=== PATIENT | male | born 1985 | race Caucasian/White ===

== ENCOUNTER 2016-09-17 00:58 | Emergency (ER) | payer OTHER ==
[2016-09-17 01:07] VITALS: BP 135/82
--- NOTE | 2016-09-17 01:29 | ER Document Report ---
ED General - General Chief Complaint: Foot Pain Stated Complaint: FOOT PAIN Time Seen by Provider: 09/17/16 01:17 Notes: Patient is a 31-year-old male presents with complaint of pain in his right foot and ankle. 3 weeks ago he rolled his ankle at work. Since then he has had intermittent swelling. He says recently he will get swelling into his foot and ankle and then it will become discolored. He has recurrent numbness with this. Tonight the swelling lasted for prolonged period time his foot was discolored and therefore came to the ER. Currently there is no discoloration. Patient says that he took off the splint and kept his foot elevated afterwards swelling and discoloration has improved. He still complains that he can see some discoloration and swelling however I do not really see any on exam currently. He did see urgent care. He did have x-rays which were negative. He has seen his primary care doctor who is referred him. He is awaiting workman's comp to approve the MRI. TRAVEL OUTSIDE OF THE [place] IN LAST 30 DAYS: No - Related Data Allergies/Adverse Reactions: No Known Allergies Allergy (Verified 04/24/15 13:40) Past Medical History - Social History Smoking Status: Unknown if Ever Smoked Frequency of alcohol use: None Drug Abuse: None Family History: Arthritis, CAD, CVA, DM, Hyperlipidemia, Hypertension, Malignancy Patient has suicidal ideation: No Patient has homicidal ideation: No Renal/ Medical History: Denies: Hx Peritoneal Dialysis Past Surgical History: Reports: Hx Appendectomy - Immunizations Hx Diphtheria, Pertussis, Tetanus Vaccination: Yes Review of Systems - Review of Systems Notes: My Normal Review Basic REVIEW OF SYSTEMS: CONSTITUTIONAL : Denies fever, chills, or sweats. Denies recent illness. MUSCULOSKELETAL: Right foot swelling and discoloration. SKIN: Denies rash or skin lesions. NEUROLOGICAL: numbness in right foot. ALL OTHER SYSTEMS REVIEWED AND NEGATIVE. Physical Exam - Vital signs Vitals: Temp Pulse Resp BP Pulse Ox 97.6 F 98 16 135/82 H 96 09/17/16 01:03 09/17/16 01:03 09/17/16 01:03 09/17/16 01:03 09/17/16 01:03 - Notes Notes: General Appearance: Well nourished, alert, cooperative, no acute distress, no obvious discomfort. Vitals: reviewed, See vital signs table. Extremities: strength 5/5 in all extremities, good pulses in all extremities, patient has slight residual bruising just proximal to the ankle itself. This is consistent with a high ankle sprain. The foot itself is normal color on my examination. His pedal pulses are fully intact and bounding. He has great capillary refill. He does say he has numbness to the foot but he is still able to feel me touch his foot; however, he says it is diminished. Cannot appreciate any swelling into the calf., no edema. Skin: warm, dry, appropriate color, no rash Neuro: speech clear, oriented x 3, normal affect, responds appropriately to questions. Course - Vital Signs Vital signs: Temp Pulse Resp BP Pulse Ox 97.6 F 98 16 135/82 H 96 09/17/16 01:03 09/17/16 01:03 09/17/16 01:03 09/17/16 01:03 09/17/16 01:03 - Transfer of Care Notes: 09/17/16 02:25 I suspect the patient is having increased swelling when he is at his foot down. This most likely would explain why he gets some discoloration. He feels he has some discoloration in his foot but I honestly cannot appreciate any discoloration on my exam. His pulses are great. His great capillary refill. I informed him that if he is developing any increased swelling or discoloration that he should take his splint off and elevate his foot until the symptoms go away. Due to the fact that he still not able to bear weight on his foot 3 weeks after the injury I do think it is very important he follows up with an orthopedist and have the MRI performed. I did refer him to our orthopedic surgeon, Dr. Gerardo. Patient encouraged to return to ER if he has any discoloration increased swelling that does not resolve with elevating his foot. Dictation of this chart was performed using voice recognition software; therefore, there may be some unintended grammatical errors. 09/17/16 02:28 Discharge - Discharge Clinical Impression: High ankle sprain Qualifiers: Encounter type: initial encounter Laterality: right Qualified Code(s): S93.431A - Sprain of tibiofibular ligament of right ankle, initial encounter Condition: Good Disposition: HOME, SELF-CARE Additional Instructions: PLeae keep your foot elevated as much as possible. Please remove the splint and immediately elevate your foot if it starts to become more swollen and discolored. Please call the orthopedist, Dr. Gerardo, for close follow up appointment. Referrals: KHOA TAMAYO MD [ACTIVE STAFF] - Follow up in 3-5 days
== END 2016-09-17 01:32 | disposition home or self-care (01) ==
LOC: ER 00:58
DX: S93.431A Sprain of tibiofibular ligament of right ankle, initial encounter (principal); M79.671 Pain in right foot; M25.571 Pain in right ankle and joints of right foot; M79.89 Other specified soft tissue disorders; X58.XXXA Exposure to other specified factors, initial encounter
CPT/HCPCS: 99283

== ENCOUNTER 2017-04-08 23:25 | Emergency (ER) | payer SELFPAY ==
[2017-04-09] MEDS ORDERED: GUAIFENESIN/D-METHORPHAN (200-20 MG) SYRUP 10 ML PO ONE (02:17)
--- NOTE | 2017-04-09 02:18 | ER Document Report ---
ED Flu Like - General Chief Complaint: Flu Symptoms Stated Complaint: FEVER,COUGH Time Seen by Provider: 04/09/17 02:00 Mode of Arrival: Ambulatory Information source: Patient Notes: Patient is a 31-year-old male who presents to the ER today for productive cough , shortness of breath,, chills and slight fever that all started this morning when he woke up. Patient denies any history of asthma or any wheezing. He has not taken anything at home for his symptoms. He states that he "was working all day." He denies any nausea, vomiting or diarrhea. He denies sore throat. TRAVEL OUTSIDE OF THE [place] IN LAST 30 DAYS: No - Related Data Allergies/Adverse Reactions: No Known Allergies Allergy (Verified 04/24/15 13:40) Past Medical History - General Information source: Patient - Social History Smoking Status: Never Smoker Family History: Arthritis, CAD, CVA, DM, Hyperlipidemia, Hypertension, Malignancy Renal/ Medical History: Denies: Hx Peritoneal Dialysis Past Surgical History: Reports: Hx Appendectomy - Immunizations Hx Diphtheria, Pertussis, Tetanus Vaccination: Yes Review of Systems - Review of Systems Constitutional: See HPI EENT: See HPI Cardiovascular: No symptoms reported Respiratory: See HPI Gastrointestinal: No symptoms reported Genitourinary: No symptoms reported Male Genitourinary: No symptoms reported Musculoskeletal: See HPI Skin: No symptoms reported Hematologic/Lymphatic: No symptoms reported Neurological/Psychological: No symptoms reported Physical Exam - Vital signs Vitals: Temp Pulse Resp BP Pulse Ox 99.8 F 115 H 16 135/84 H 98 04/08/17 23:41 04/08/17 23:41 04/08/17 23:41 04/08/17 23:41 04/08/17 23:41 - Notes Notes: PHYSICAL EXAMINATION: GENERAL: Mildly ill-appearing, in no acute distress. HEAD: Atraumatic, normocephalic. EYES: Pupils equal round and reactive to light, extraocular movements intact, sclera anicteric, conjunctiva are normal. ENT: ear canals without erythema or foreign body, TMs pearly villegas with good bony landmarks, nares with mucoid discharge, oropharynx erythematous without enlarged tonsils without exudates. Moist mucous membranes. NECK: Normal range of motion, supple without lymphadenopathy LUNGS: Productive cough, otherwise CTAB and equal. No wheezes rales or rhonchi. HEART: Regular rate and rhythm without murmurs ABDOMEN: Soft, no tenderness. No guarding, no rebound BACK: no vertebral tenderness, normal ROM GI/: no CVA tenderness EXTREMITIES: Normal range of motion, no pitting edema. No cyanosis. NEUROLOGICAL: Cranial nerves grossly intact. Normal sensory/motor exams. PSYCH: Normal mood, normal affect. SKIN: Warm, Dry, normal turgor, no rashes or lesions noted Course - Re-evaluation Re-evalutation: 04/09/17 03:33 Influenza negative today, chest x-ray negative for any acute pathology. Patient 's symptoms are viral in origin I will treat symptomatically at this time. - Vital Signs Vital signs: Temp Pulse Resp BP Pulse Ox 99.8 F 115 H 16 135/84 H 98 04/08/17 23:41 04/08/17 23:41 04/08/17 23:41 04/08/17 23:41 04/08/17 23:41 Discharge - Discharge Clinical Impression: URI (upper respiratory infection) Qualifiers: URI type: unspecified viral URI Qualified Code(s): J06.9 - Acute upper respiratory infection, unspecified Condition: Stable Disposition: HOME, SELF-CARE Instructions: Upper Respiratory Illness ([facility]), Viral Syndrome ([facility]) Additional Instructions: Return immediately for any new or worsening symptoms. Follow up with primary care provider, call tomorrow to make followup appointment. Prescriptions: Hydrocodone Bit/Homatropine [Hycodan Syrup 5-1.5 mg/5 ml Ud Cup] 5 ml PO Q4HP PRN #120 ml PRN Reason: Ibuprofen [Motrin 800 mg Tablet] 800 mg PO Q8H PRN #30 tab PRN Reason: Forms: Return to Work
[2017-04-09 02:55] LABS: A TYPE INFLUENZA AG NEGATIVE (NEGATIVE); B INFLUENZA AG NEGATIVE (NEGATIVE)
--- NOTE | 2017-04-09 02:58 | RADIOLOGY REPORT (SQ) ---
EXAM DESCRIPTION: CHEST PA/LAT CLINICAL HISTORY: 31 years, Male, sob, cough COMPARISON: None. FINDINGS: Normal lung volume, clear parenchyma, normal cardiac silhouette, and intact bony thorax. IMPRESSION: No acute cardiopulmonary findings. 2011 [employer]- All Rights Reserved
[2017-04-09 04:09] VITALS: BP 121/83
[2017-04-09] MEDS ORDERED: ALBUTEROL SULFATE HFA (90 MCG/PUFF) 200 PUFF/8.5 GM MDI IH ONE (04:18)
== END 2017-04-09 04:27 | disposition home or self-care (01) ==
LOC: ER 23:25
DX: J06.9 Acute upper respiratory infection, unspecified (principal); R50.9 Fever, unspecified; R05 Cough; R06.02 Shortness of breath
CPT/HCPCS: 99284; 87804; 71046; J3490 ×2

== ENCOUNTER 2017-04-14 19:43 | Emergency (ER) | payer SELFPAY ==
--- NOTE | 2017-04-15 00:06 | RADIOLOGY REPORT (SQ) ---
EXAM DESCRIPTION: CHEST PA/LAT CLINICAL HISTORY: cough and fever COMPARISON: None. FINDINGS: Frontal and lateral views of the chest. The cardiomediastinal silhouette has normal size and contour. Patchy airspace opacities throughout the left lung compatible with developing consolidation. No pleural effusion or pneumothorax. No displaced rib fractures identified. Upper abdominal soft tissues are unremarkable. IMPRESSION: 1. Diffuse patchy left lung airspace opacity compatible with developing pneumonia. Continued radiographic follow-up to resolution recommended.
[2017-04-15] MEDS ORDERED: LEVOFLOXACIN 750 MG TABLET PO ONE (00:26)
--- NOTE | 2017-04-15 00:55 | ER Document Report ---
ED General - General Chief Complaint: Flu Symptoms Stated Complaint: FEVER Time Seen by Provider: 04/14/17 22:48 Notes: Patient is a very pleasant 31-year-old male who presents with complaint of coughing. Patient says he has had coughing currently now for almost a week. He was seen on the . He was diagnosed with a URI. He was placed on cough medications. Patient says since then he is felt like he is getting worse. He says he did develop some diarrhea today. He said he did quit smoking when he started feeling sick. He says he has not smoked in last few days. No pain in chest except for when he coughs. No abdominal pain. Sore throat but he feels this is related to the coughing. Patient says he checks temporarily throughout the day. He says his temp is range anywhere from 98-104. He has been taking Tylenol and Motrin. Says he has been drinking a lot of liquids and holding them down. TRAVEL OUTSIDE OF THE [place] IN LAST 30 DAYS: No - Related Data Allergies/Adverse Reactions: No Known Allergies Allergy (Verified 04/24/15 13:40) Past Medical History - Social History Smoking Status: Current Some Day Smoker Frequency of alcohol use: None Drug Abuse: None Family History: Arthritis, CAD, CVA, DM, Hyperlipidemia, Hypertension, Malignancy Patient has suicidal ideation: No Patient has homicidal ideation: No Renal/ Medical History: Denies: Hx Peritoneal Dialysis Past Surgical History: Reports: Hx Appendectomy - Immunizations Hx Diphtheria, Pertussis, Tetanus Vaccination: Yes Review of Systems - Review of Systems Notes: My Normal Review Basic REVIEW OF SYSTEMS: CONSTITUTIONAL : Fevers at home. EENT: Denies eye, ear, throat, or mouth pain or symptoms. Denies nasal or sinus congestion. RESPIRATORY: Coughing. Some difficulty breathing with exertion. GASTROINTESTINAL: Denies abdominal pain. Diarrhea. GENITOURINARY: Denies difficulty urinating, painful urination, burning, frequency, or blood in urine. MUSCULOSKELETAL: Denies neck or back pain or joint pain or swelling. SKIN: Denies rash or skin lesions. NEUROLOGICAL: Denies altered mental status or loss of consciousness. Denies weakness or paralysis or loss of use of either side. Denies problems with gait or speech. Denies sensory or motor loss. ALL OTHER SYSTEMS REVIEWED AND NEGATIVE. Physical Exam - Vital signs Vitals: Temp Pulse BP Pulse Ox 98.2 F 104 H 125/75 93 04/14/17 20:39 04/14/17 20:39 04/14/17 20:39 04/14/17 20:39 - Notes Notes: General Appearance: Well nourished, alert, cooperative, no acute distress, no obvious discomfort. He appears comfortable at rest. Vitals: reviewed, See vital signs table. Head: no swelling or tenderness to the head Eyes: PERRL, EOMI, Conjuctiva clear Mouth: No decreasd moisture Throat: No tonsillar inflammation, No airway obstruction, No lymphadenopathy Lungs: Coarse breath sounds on the left. Heart: Sightly tachycardic rate, Regular rythm, No murmur, no rub Abdomen: Normal BS, soft, No rigidity, No abdominal tenderness, No guarding, no rebound, no abdominal masses, no organomegaly Extremities: strength 5/5 in all extremities, good pulses in all extremities, no swelling or tenderness in the extremities, no edema. Skin: warm, dry, appropriate color, no rash Neuro: speech clear, oriented x 3, normal affect, responds appropriately to questions. Course - Re-evaluation Re-evalutation: 04/15/17 01:07 Patient's chest x-ray does show developing pneumonia. His left lung field on the chest x-ray is impressive with pneumonia. I informed him that he has pneumonia which makes sense with his coughing and recurrent high fevers. I did talk to the patient about staying in versus going home and trying outpatient therapy with close follow-up. Patient prefers to go home and does not want to stay. I request that he at least let me walk him to see how he does. When patient walked on pulse oximeter his oxygen saturation stayed between 93-94% but his heart rate went up to 120. He did get a little bit tachypneic. I informed him that I recommend that he at least allow me to draw blood work and watch him for little bit longer here in the ER. Once blood work comes back we can discuss again potential admission. Patient refuses to stay for any further blood work. His family member is in the room and she says she has been to work in morning. I offered to write her a work note and she says she has to be at work no matter what. Patient says he feels well enough to go home. I informed him that this is ultimately his choice on whether or not to go home; however, I do recommend him allowing us to further workup and evaluate for admission. Patient says he understands my concerns but still feels that he is okay to go home and agrees that he will return to the ER immediately if he feels he is worsening in anyway. I informed him that even though we are starting him on antibiotics that his pneumonia potentially could get worse and he could become very ill from this. I informed him that he must have a very low threshold to return to the ER if he feels that he is worse in any way. He must follow-up with a doctor within 1-2 days for reevaluation regardless of how he feels. Patient agrees with plan will be discharged home as he requests. Dictation of this chart was performed using voice recognition software; therefore, there may be some unintended grammatical errors. - Vital Signs Vital signs: Temp Pulse Resp BP Pulse Ox 98.2 F 104 H 125/75 93 04/14/17 20:39 04/14/17 20:39 04/14/17 20:39 04/14/17 20:39 Discharge - Discharge Clinical Impression: Pneumonia Qualifiers: Pneumonia type: due to unspecified organism Laterality: unspecified laterality Lung location: unspecified part of lung Qualified Code(s): J18.9 - Pneumonia, unspecified organism Condition: Stable Disposition: HOME, SELF-CARE Additional Instructions: PNEUMONIA: Your examination indicates that you have pneumonia. This is an infection of the lung tissue, usually caused by bacteria or a virus. Symptoms include cough, fever, shaking chills, chest pain, shortness of breath, and coughing up bloody sputum. Treatment for bacterial pneumonia includes rest, antibiotics for 10 to 14 days, increasing your clear liquid intake, a cool mist humidifier at your bedside, and fever medication. Often, a repeat chest X-ray is performed in a few weeks--even if you feel better--to ascertain whether the infection has completely resolved and no underlying lung problem is present. You should call the physician if you develop persistent vomiting, high fever that does not respond to fever medication, increasing shortness of breath , confusion, or lethargy. Also, failure to improve within two to three days is an indication for re-examination. ANTIBIOTIC INJECTION: You have been given an antibiotic injection. Sometimes the injection must be combined with antibiotic pills. For some infections, the shot provides all the antibiotic that's needed. Common side effects of antibiotics include nausea, intestinal cramping, or diarrhea. These are very unusual following a shot. Women may develop vaginal yeast infections, and babies can get yeast ( thrush) in the mouth following the use of antibiotics. Contact your physician if you develop significant side effects from this medication. Allergy to this antibiotic can result in hives, wheezing, faintness, or itching. If symptoms of allergy occur, call the doctor at once. LEVOFLOXACIN: You have been given an antibacterial agent, levofloxacin (Levaquin). This medicine is not related to the penicillins, sulfas, cephalosporins, or tetracyclines. It is often given to patients who are allergic to these drugs. It has been chosen for you either because other drugs are not appropriate, or because of the nature of your problem. Levaquin should not be taken with antacids, as these can decrease its effectiveness. It can be taken without regard to meals. LEVAQUIN SHOULD NOT BE TAKEN BY CHILDREN, NURSING WOMEN, OR WOMEN. Although Levaquin is usually well-tolerated, common side effects can include nausea and diarrhea. Contact your doctor if you experience any unusual symptoms while on this medication, such as joint pain or swelling, shortness of breath, wheezing, faintness, or hives. FOLLOW-UP CARE: If you have been referred to a physician for follow-up care, call the physician s office for an appointment as you were instructed or within the next two days. If you experience worsening or a significant change in your symptoms, notify the physician immediately or return to the Emergency Department at any time for re-evaluation. You have a pneumonia on chest xray. As discussed with you, my main concern is that you become short of breath, your oxygen decreases, and your heart rate becomes high when you ambulate. I respect your decision to go home and not want to stay for further testing and potential admission, but you need to have a very low threshhold to return to the ER as your pneumonia can potentially become much worse and you could become more sick. If you feel as if you are getting more ill and do not return to the ER immediately you could potentially become more ill and could develop difficulty breathing and worsening infection that could lead to . Please be sure to follow up with a physician in 24 to 48 hours for close reevaluation. Please return to the ER for reevaluation if you do not have a physician to follow up with. Prescriptions: Levofloxacin [Levaquin 750 mg Tablet] 750 mg PO DAILY #7 tablet Forms: Return to Work
[2017-04-15 01:14] VITALS: BP 119/70
== END 2017-04-15 01:14 | disposition home or self-care (01) ==
LOC: ER 19:43
DX: R50.9 Fever, unspecified (principal); J18.9 Pneumonia, unspecified organism; R05 Cough; F17.200 Nicotine dependence, unspecified, uncomplicated
CPT/HCPCS: 71046; 99283

== ENCOUNTER 2018-04-06 08:46 | Emergency (ER) | payer SELFPAY ==
[2018-04-06] MEDS ORDERED: HYDROCODONE/ACETAMINOPHEN 5-325 MG TABLET PO ONE (09:59)
--- NOTE | 2018-04-06 11:01 | ER Document Report ---
HPI - HPI Patient complains to provider of: Right elbow pain Time Seen by Provider: 04/06/18 09:54 Onset: Other - 1 month Onset/Duration: Persistent Quality of pain: Achy Pain Level: 3 Context: Patient presents complaining of elbow pain for the past month. Patient denies any specific injury. Patient is right-hand dominant. Patient does report previously lifting a couch and attempting to catch it as it started to fall but states that he did not immediately have pain but only had pain the following day. Patient denies any fever or history of IV drug use. Associated Symptoms: Other - r elbow pain. denies: Fever Exacerbated by: Movement Relieved by: Denies Similar symptoms previously: No Recently seen / treated by doctor: No - ROS ROS below otherwise negative: Yes Systems Reviewed and Negative: Yes All other systems reviewed and negative - CONSTITUTIONAL Constitutional: DENIES: Fever, Chills - NEURO Neurology: DENIES: Headache, Weakness - MUSCULOSKELETAL Musculoskeletal: REPORTS: Extremity pain - R arm. DENIES: Swelling - DERM Skin Color: Normal Skin Problems: None Past Medical History - General Information source: Patient - Social History Smoking Status: Never Smoker Chew tobacco use (# tins/day): Yes - 0.5 tin/day Frequency of alcohol use: Heavy Drug Abuse: None Occupation: furniture delivery Lives with: Family Family History: Arthritis, CAD, CVA, DM, Hyperlipidemia, Hypertension, Malignancy Patient has suicidal ideation: No Patient has homicidal ideation: No Renal/ Medical History: Denies: Hx Peritoneal Dialysis Musculoskeletal Medical History: Reports Other - back pain, shoulder pain Past Surgical History: Reports: Hx Appendectomy, Hx Genitourinary Surgery - Vasectomy - Immunizations Hx Diphtheria, Pertussis, Tetanus Vaccination: Yes Vertical Provider Document - CONSTITUTIONAL Agree With Documented VS: Yes Exam Limitations: No Limitations General Appearance: WD/WN, No Apparent Distress - INFECTION CONTROL TRAVEL OUTSIDE OF THE [place] IN LAST 30 DAYS: No - HEENT HEENT: Atraumatic, Normocephalic - NECK Neck: Normal Inspection - RESPIRATORY Respiratory: Breath Sounds Normal, No Respiratory Distress - CARDIOVASCULAR Cardiovascular: Regular Rate, Regular Rhythm Pulses: Normal: Radial - MUSCULOSKELETAL/EXTREMETIES Musculoskeletal/Extremeties: MAEW, Tender - Right elbow tenderness over medial epicondyle, normal skin color and temperature overlying joint. No effusion - NEURO Level of Consciousness: Awake, Alert, Appropriate Motor/Sensory: No Motor Deficit - DERM Integumentary: Warm, Dry, No Rash Course - Diagnostic Test Radiology reviewed: Image reviewed, Reports reviewed Procedures - Immobilization Right Elbow Pre-Proc Neuro Vasc Exam: Normal Immobilizer type: Josesito wrap Performed by: PCT Post-Proc Neuro Vasc Exam: Normal Alignment checked and good: Yes Discharge - Discharge Clinical Impression: Medial epicondylitis Qualifiers: Laterality: right Qualified Code(s): M77.01 - Medial epicondylitis, right elbow Condition: Stable Disposition: HOME, SELF-CARE Instructions: Anti-Inflammatory Medication ([facility]), Medial Epicondylitis ([facility]) Additional Instructions: Return immediately for any new or worsening symptoms Followup with your primary care provider, call tomorrow to make a followup appointment Follow-up with orthopedics for any persistent pain or problems Prescriptions: Naproxen [Naprosyn 250 Nmg Tablet] 1 tab PO BID #14 tablet Forms: Restricted Release, Return to Work Referrals: [facility] [Provider Group] - Follow up as needed
--- NOTE | 2018-04-06 11:07 | RADIOLOGY REPORT (SQ) ---
EXAM DESCRIPTION: CHEST 2 VIEWS COMPLETED DATE/TIME: 04/06/2018 10:57 am REASON FOR STUDY: r medial elbow pain COMPARISON: None. NUMBER OF VIEWS: Four view. TECHNIQUE: AP, lateral, and both oblique radiographic images acquired of the right elbow. LIMITATIONS: None. FINDINGS: MINERALIZATION: Normal. BONES: No acute fracture or dislocation. No worrisome bone lesions. No significant osteophytes. JOINT: No effusions. SOFT TISSUES: No soft tissue swelling. No foreign body. OTHER: No other significant finding. IMPRESSION: NEGATIVE STUDY OF THE RIGHT ELBOW. NO EXPLANATION FOR PAIN. TECHNICAL DOCUMENTATION: JOB ID: [id number] [employer] All Rights Reserved Reading location - IP/workstation name: [email or web address]
[2018-04-06 11:30] VITALS: BP 123/79
== END 2018-04-06 11:29 | disposition home or self-care (01) ==
LOC: ER 08:46
DX: M77.01 Medial epicondylitis, right elbow (principal); M25.521 Pain in right elbow; Z72.0 Tobacco use
CPT/HCPCS: 99283

== ENCOUNTER 2018-05-15 10:09 | Emergency (ER) | payer SELFPAY ==
[2018-05-15] MEDS ORDERED: NORMAL SALINE 1000 ML 1,000 ML IV ONE (10:35)
--- NOTE | 2018-05-15 10:37 | ER Document Report ---
ED Medical Screen (RME) - General Chief Complaint: Numbness of Arm Stated Complaint: EYE TWITCHING, DIZZY, ARM NUMBNESS Time Seen by Provider: 05/15/18 10:26 Notes: Patient is a 32-year-old male that presents to the emergency department for chi ef complaint of eye twitching and facial numbness. Patient states that this started to 3 days ago, with left eye twitching, and left-sided facial numbness, and seems to come over to his right face. He states is now occasionally involving both his arms, and has been having intermittent headaches that come and go, and vary in severity. ROS: Other than noted above, the 12 point review of systems was reviewed with the patient and were negative, all pertinent findings are included in the HPI. PHYSICAL EXAMINATION: Vital signs reviewed. GENERAL: Well-appearing, well-nourished and in no acute distress. HEAD: Atraumatic, normocephalic. EYES: Pupils equal round extraocular movements intact, conjunctiva are normal.PERRLA ENT: Nares patent NECK: Normal range of motion CV: Heart regular rate and rhythm LUNGS: No respiratory distress Musculoskeletal: Normal range of motion NEUROLOGICAL: Normal speech, decreased gross sensation on the left face compared to the right. PSYCH: Normal mood, normal affect. MDM: Patient seen and examined for rapid initial assessment. Vital signs reviewed. A comprehensive ED assessment and evaluation of the patient, analysis of test results and completion of the medical decision making process will be conducted by additional ED providers. *Note is created using voice recognition software and may contain spelling, syntax or grammatical errors. TRAVEL OUTSIDE OF THE [place] IN LAST 30 DAYS: No - Related Data Allergies/Adverse Reactions: No Known Allergies Allergy (Verified 05/15/18 10:09) Past Medical History - Social History Chew tobacco use (# tins/day): Yes Frequency of alcohol use: Heavy Drug Abuse: None Renal/ Medical History: Denies: Hx Peritoneal Dialysis Past Surgical History: Reports: Hx Appendectomy, Hx Genitourinary Surgery - Vasectomy - Immunizations Hx Diphtheria, Pertussis, Tetanus Vaccination: Yes Physical Exam - Vital signs Vitals: Temp Pulse Resp BP Pulse Ox 98.0 F 86 16 136/87 H 98 05/15/18 10:20 05/15/18 10:20 05/15/18 10:20 05/15/18 10:20 05/15/18 10:20 Course - Vital Signs Vital signs: Temp Pulse Resp BP Pulse Ox 98.0 F 86 16 136/87 H 98 05/15/18 10:20 05/15/18 10:20 05/15/18 10:20 05/15/18 10:20 05/15/18 10:20
[2018-05-15 11:22] LABS: ABSOLUTE EOSINOPHILS # (AUTO) 0.1 10^3/uL (0.0-0.6); ABSOLUTE LYMPHOCYTES (AUTO) 1.9 10^3/uL (0.5-4.7); ABSOLUTE MONOCYTES (AUTO) 0.2 10^3/uL (0.1-1.4); ABSOLUTE NEUT (AUTO) 2.1 10^3/uL (1.7-8.2); BASOPHILS % (AUTO) 0.8 % (0-2); EOSINOPHILS % (AUTO) 2.5 % (0-6); HEMATOCRIT 44.8 % (37.9-51.0); HEMOGLOBIN 16.1 g/dL (13.5-17.0); LYMPHOCYTES % (AUTO) 43.1 % (13-45); MEAN CORPUSCULAR HEMOGLOBIN 33.7 pg (27.0-33.4); MEAN CORPUSCULAR HGB CONC 35.9 g/dL (32.0-36.0); MEAN CORPUSCULAR VOLUME 94 fl (80-97); MONOCYTES % (AUTO) 4.8 % (3-13); PLATELET COUNT 164 10^3/uL (150-450); RED BLOOD COUNT 4.77 10^6/uL (4.35-5.55); RED CELL DISTRIBUTION WIDTH 12.8 % (11.5-14.0); SEGMENTED NEUTROPHILS % (AUTO) 48.8 % (42-78); TOTAL CELLS COUNTED % (AUTO) 100 %; WHITE BLOOD COUNT 4.4 10^3/uL (4.0-10.5)
--- NOTE | 2018-05-15 11:23 | RADIOLOGY REPORT (SQ) ---
EXAM DESCRIPTION: CT HEAD WITHOUT COMPLETED DATE/TIME: 05/15/2018 11:12 am REASON FOR STUDY: facial numbness COMPARISON: None. TECHNIQUE: Axial images acquired through the brain without intravenous contrast. Images reviewed wi th bone, brain and subdural windows. Additional sagittal and coronal reconstructions were generated. Images stored on PACS. All CT scanners at this facility use dose modulation, iterative reconstruction, and/or weight based d osing when appropriate to reduce radiation dose to as low as reasonably achievable (ALARA). [facility]: Dose Right [facility]: CareDose [facility]: Dose Right [facility]: Teradose 4D [facility]: Smart Netac RADIATION DOSE: CT Rad equipment meets quality standard of care and radiation dose reduction techniq ues were employed. CTDIvol: 53.2 mGy. DLP: 991 mGy-cm. mGy. LIMITATIONS: None. FINDINGS: VENTRICLES: Normal size and contour. CEREBRUM: No masses. No hemorrhage. No midline shift. No evidence for acute infarction. Normal gra y/white matter differentiation. No areas of low density in the white matter. CEREBELLUM: No masses. No hemorrhage. No alteration of density. No evidence for acute infarction. EXTRAAXIAL SPACES: No fluid collections. No masses. ORBITS AND GLOBE: No intra- or extraconal masses. Normal contour of globe without masses. CALVARIUM: No fracture. PARANASAL SINUSES: No fluid or mucosal thickening. SOFT TISSUES: No mass or hematoma. OTHER: No other significant finding. IMPRESSION: NORMAL BRAIN CT WITHOUT CONTRAST. EVIDENCE OF ACUTE STROKE: NO. COMMENT: Quality ID # [id number]: Final reports with documentation of one or more dose reduction techniques (e.g., Automated exposure control, adjustment of the mA and/or kV according to patient size, use of iterative reconstruction technique) TECHNICAL DOCUMENTATION: JOB ID: [id number] [employer]- All Rights Reserved Reading location - IP/workstation name: [email or web address]
[2018-05-15 11:39] LABS: ALANINE AMINOTRANSFERASE 45 U/L (21-72); ALBUMIN 4.9 g/dL (3.5-5.0); ALKALINE PHOSPHATASE 76 U/L (38-126); ANION GAP 13 (5-19); ASPARTATE AMINO TRANSFERASE 50 U/L (17-59); BILIRUBIN,DIRECT 0.1 mg/dL (0.0-0.4); BILIRUBIN,TOTAL 0.9 mg/dL (0.2-1.3); BLOOD UREA NITROGEN 14 mg/dL (7-20); CALCIUM 9.4 mg/dL (8.4-10.2); CARBON DIOXIDE 25 mmol/L (22-30); CHLORIDE 107 mmol/L (98-107); GLUCOSE 86 mg/dL (75-110); POTASSIUM 4.3 mmol/L (3.6-5.0); SODIUM 144.5 mmol/L (137-145)
[2018-05-15 12:58] LABS: APPEARANCE,URINE CLEAR; BILIRUBIN,URINE NEGATIVE (NEGATIVE); COLOR,URINE YELLOW; GLUCOSE, URINE NEGATIVE (NEGATIVE); KETONES,URINE NEGATIVE (NEGATIVE); LEUKOCYTE ESTERASE,URINE NEGATIVE (NEGATIVE); NITRITE,URINE NEGATIVE (NEGATIVE); PROTEIN,URINE NEGATIVE (NEGATIVE); URINE SPECIFIC GRAVITY 1.011; UROBILINOGEN,URINE NEGATIVE mg/dL (<2.0)
[2018-05-15] MEDS ORDERED: DIPHENHYDRAMINE HCL 50 MG/ML VIAL IV ONE (14:36)
[2018-05-15] MEDS ORDERED: METOCLOPRAMIDE HCL INJ/PF 10 MG/2 ML SDV IV ONE (14:36)
[2018-05-15] MEDS ORDERED: MECLIZINE HCL 25 MG TABLET PO ONE (14:36)
[2018-05-15] MEDS ORDERED: RINGERS SOLUTION,LACTATED 1,000 ML IV ONE (14:36)
--- NOTE | 2018-05-15 14:43 | ER Document Report ---
ED General - General Chief Complaint: Numbness of Arm Stated Complaint: EYE TWITCHING, DIZZY, ARM NUMBNESS Time Seen by Provider: 05/15/18 10:26 Mode of Arrival: Ambulatory Information source: Patient, [facility] Records Notes: 32-year-old male with no reported past medical history presents with complaint of headache, left eye twitching and left-sided facial numbness that started 3 days prior to arrival. Patient reports that the left eye twitching began first then his headache gradually develop and slowly worsened over the last 3 days. His numbness he reports has gone from his left side to his right side multiple times but now is currently only on his left side. He denies any slurred speech, facial droop, weakness, difficulty with walking but states he has had episodes where he has felt very dizzy. Patient admits to dipping tobacco, drinking daily but denies any drug use. He is not on any daily medications. Surgical history of appendectomy. TRAVEL OUTSIDE OF THE [place] IN LAST 30 DAYS: No - HPI Onset: Other Onset/Duration: Gradual, Persistent, Worse Quality of pain: Achy, Throbbing Severity: Moderate Associated symptoms: Headache, Nausea. denies: Chest pain, Fever, Shortness of breath, Sore throat, Sweating, Weakness Exacerbated by: Denies Relieved by: Denies Similar symptoms previously: No Recently seen / treated by doctor: No - Related Data Allergies/Adverse Reactions: No Known Allergies Allergy (Verified 05/15/18 10:09) Past Medical History - General Information source: Patient, [facility] Records - Social History Smoking Status: Never Smoker Chew tobacco use (# tins/day): Yes Frequency of alcohol use: Heavy Drug Abuse: None Lives with: Spouse/Significant other Family History: Arthritis, CAD, CVA, DM, Hyperlipidemia, Hypertension, Malignancy Patient has suicidal ideation: No Patient has homicidal ideation: No - Medical History Medical History: Negative Renal/ Medical History: Denies: Hx Peritoneal Dialysis Past Surgical History: Reports: Hx Appendectomy, Hx Genitourinary Surgery - Va sectomy - Immunizations Hx Diphtheria, Pertussis, Tetanus Vaccination: Yes Review of Systems - Review of Systems Constitutional: denies: Fever, Weakness, Recent illness EENT: denies: Eye pain, Blurred vision, Sinus pressure, Difficulty swallowing Cardiovascular: Dizziness. denies: Chest pain, Palpitations Respiratory: denies: Cough, Short of breath Gastrointestinal: denies: Abdominal pain, Nausea, Vomiting Genitourinary: denies: Dysuria, Flank pain Male Genitourinary: No symptoms reported Musculoskeletal: denies: Back pain, Muscle pain, Leg swelling Skin: denies: Rash Hematologic/Lymphatic: No symptoms reported Neurological/Psychological: Headaches. denies: Confusion -: Yes All other systems reviewed and negative Physical Exam - Vital signs Vitals: Temp Pulse Resp BP Pulse Ox 98.0 F 86 16 136/87 H 98 05/15/18 10:20 05/15/18 10:20 05/15/18 10:20 05/15/18 10:20 05/15/18 10:20 - Notes Notes: PHYSICAL EXAMINATION: GENERAL: Well-appearing, well-nourished and in no acute distress. HEAD: Atraumatic, normocephalic. EYES: Pupils equal round and reactive to light, extraocular movements intact, sclera anicteric, conjunctiva are normal. ENT: Nares patent, oropharynx clear without exudates. Moist mucous membranes. NECK: Normal range of motion, supple without lymphadenopathy LUNGS: Breath sounds clear to auscultation bilaterally and equal. No wheezes rales or rhonchi. HEART: Regular rate and rhythm without murmurs ABDOMEN: Soft, nontender, nondistended abdomen. No guarding, no rebound. No masses appreciated. Musculoskeletal: Normal range of motion, no pitting or edema. No cyanosis. NEUROLOGICAL: Neuro exam Mental status; alert and oriented x3. Cranial nerves II through XII intact. Sensation intact to sharp/dull differentiation in all extremities. Motor; normal tone. No abnormal movements appreciated. No pronator drift. Strength tested and 5/5 in bilateral wrist flexion/extension, elbow flexion/extension, shoulder abduction, straight leg raise, knee flexion/extension, ankle dorsiflexion/plantar flexion. Patient ambulates with a steady gait. Coordination; no ataxia. Finger to nose and heel to razo testing intact bilaterally. Reflexes; brachial radialis, biceps, and patellar reflexes within normal limits and symmetric bilaterally. Babinski with downgoing toes bilaterally. PSYCH: Normal mood, normal affect. SKIN: Warm, Dry, normal turgor, no rashes or lesions noted. Course - Re-evaluation Re-evalutation: 05/16/18 09:47 Laboratory 0205/15/18 05/15/18 10:56 10:56 12:26 WBC 4.4 RBC 4.77 Hgb 16.1 Hct 44.8 MCV 94 MCH 33.7 H MCHC 35.9 RDW 12.8 Plt Count 164 Seg Neutrophils % 48.8 Lymphocytes % 43.1 Monocytes % 4.8 Eosinophils % 2.5 Basophils % 0.8 Absolute Neutrophils 2.1 Absolute Lymphocytes 1.9 Absolute Monocytes 0.2 Absolute Eosinophils 0.1 Absolute Basophils 0.0 Sodium 144.5 Potassium 4.3 Chloride 107 Carbon Dioxide 25 Anion Gap 13 BUN 14 Creatinine 0.87 Est GFR ( Amer) > 60 Est GFR (Non-Af Amer) > 60 Glucose 86 Calcium 9.4 Total Bilirubin 0.9 Direct Bilirubin 0.1 Neonat Total Bilirubin Not Reportable Neonat Direct Bilirubin Not Reportable Neonat Indirect Bili Not Reportable AST 50 ALT 45 Alkaline Phosphatase 76 Total Protein 8.0 Albumin 4.9 Urine Color YELLOW Urine Appearance CLEAR Urine pH 7.0 Ur Specific [place] 1.011 Urine Protein NEGATIVE Urine Glucose (UA) NEGATIVE Urine Ketones NEGATIVE Urine Blood NEGATIVE Urine Nitrite NEGATIVE Urine Bilirubin NEGATIVE Urine Urobilinogen NEGATIVE Ur Leukocyte Esterase NEGATIVE Urine WBC (Auto) 0 Urine RBC (Auto) 0 Urine Mucus (Auto) RARE Urine Ascorbic Acid NEGATIVE Head CT 05/15/18 10:35 IMPRESSION: NORMAL BRAIN CT WITHOUT CONTRAST. EVIDENCE OF ACUTE STROKE: NO. Head MRI 05/15/18 14:37 IMPRESSION: NORMAL MRI OF THE BRAIN WITHOUT INTRAVENOUS GADOLINIUM CONTRAST. EVIDENCE OF ACUTE STROKE: NO. Temp Pulse Resp BP Pulse Ox 98.0 F 69 16 115/77 97 05/15/18 10:20 05/15/18 18:33 05/15/18 18:33 05/15/18 18:33 05/15/18 18:33 32-year-old male presents with complaints of headache, left eye twitching and left sided facial numbness that started 3 days prior to arrival. Vital signs reviewed upon arrival and within normal limits. Patient does not appear toxic or dehydrated. He is in no acute distress. I do not appreciate any eye twitching upon my exam. Patient has an NIH of 0. Patient was given a headache cocktail but still complained of facial numbness which he now claims is spreading into his arm. CT of the head was initially obtained and within normal limits but because of the patient's persistent complaint of numbness an MRI was obtained which showed no evidence of stroke. CBC, CMP, urinalysis are unremarkable. Patient does report improvement of his headache prior to discharge. Patient was evaluated and treated as appropriate for the patient's presenting symptoms and complaint, with consideration of any critical or life threatening conditions that may be associated with their obtained history and exam as noted above. All results were discussed with patient and his significant other who is at the bedside. Patient provided the opportunity to ask questions, and express concerns. Patient was educated on treatments based on their presumed diagnosis as noted above. At this time we will discharge the patient with return precautions and follow-up recommendations. Verbal discharge instructions given a the bedside. Medication warnings reviewed. Patient is in agreement with this plan and has verbalized understanding of return precautions. After careful consideration I feel that that patient can be safely discharged from the emergency department, they were advised to followup with a primary care physician in 2-3 days. Dictation on this chart was performed using voice recognition software and may result in unintended grammatical, spelling, syntax or errors. - Vital Signs Vital signs: Temp Pulse Resp BP Pulse Ox 98.0 F 69 16 115/77 97 05/15/18 10:20 05/15/18 18:33 05/15/18 18:33 05/15/18 18:33 05/15/18 18:33 - Laboratory Result Diagrams: 05/15/18 10:56 05/15/18 10:56 Laboratory results interpreted by me: 05/15/18 10:56 MCH 33.7 H - Diagnostic Test Radiology reviewed: Image reviewed, Reports reviewed - EKG Interpretation by [place] EKG shows normal: Sinus rhythm Rate: Normal Rhythm: NSR When compared to previous EKG there are: No significant change Discharge - Discharge Clinical Impression: Numbness and tingling of left side of face Headache Qualifiers: Headache type: unspecified Headache chronicity pattern: unspecified pattern Intractability: not intractable Qualified Code(s): R51 - Headache Condition: Good Disposition: HOME, SELF-CARE Instructions: Headache ([facility]), Numbness or Paresthesia ([facility]) Additional Instructions: You have been seen in the Emergency Department (ED) for a headache. Please use Tylenol (acetaminophen) or Motrin (ibuprofen) as needed for symptoms, but only as written on the box. As we have discussed, please follow up with your primary care doctor as soon as possible regarding today's ED visit and your headache symptoms. Call your doctor or return to the ED if you have a worsening headache, sudden and severe headache, confusion, slurred speech, facial droop, weakness or numbness in any arm or leg, extreme fatigue, or other symptoms that concern you. Prescriptions: Ibuprofen [Motrin 600 Mg Tablet] 600 mg PO TID #15 tablet Forms: Elevated Blood Pressure, Return to Work ED NIH Stroke Scale - NIH Stroke Scale *: 1. NIH scale should be completed with appropriate accompanying assessment tools. *: 2. The NIH should reflect what the patient is capable of doing and should not be coached by the clinician. 1a. Level of Consciousness: 0=Alert;keenly responsive -: 1=Drowsy -: 2=Obtunded -: 3=Coma/unresponsive or reflex to noxious stimuli. 1a. Responses: 0 1b. Orientation Questions: a. What month is it? -: b. How old are you? -: 0=Answers both questions correctly. -: 1=Answers one question correctly or patient is intubated or has orotracheal trauma. -: 2=Answers neither question correctly. 1b. Responses: 0 1c. Response to commands: a. Open and close eyes? -: b. Soil Conservation Aide and release hand? -: Credit is given despite weakness. Demonstration of task is permitted. Substitute command if hands cannot be used. -: 0=Performs both tasks correctly -: 1=Performs one task correctly -: 2=Performs neither task correctly 1c. Responses: 0 2. Gaze: Establish eye contact and instruct patient to "Follow my finger" -: 0=Normal -: 1=Partial gaze palsy. Gaze is abnormal in one or both eyes, but where forced deviation or total gaze paresis is not present. -: 2=Forced deviation or total gaze paresis. 2. Responses: 0 3. Visual Person: Sees fingers in all four quadrants. -: 0=No visual loss. -: 1=Partial hemianopsia. -: 2=Complete hemianopsia. -: 3=Bilateral hemianopsia (including Cortical blindness) 3. Responses: 0 4. Facial Movement: Instruct patient to: -: a. Show me your teeth -: b. Raise your eyebrows -: c. Close your eyes -: d. Smile -: 0=Normal symmetrical movement -: 1=Minor paralysis (flattened nasolabial fold, asymmetry on smiling). -: 2=Partial paralysis (total or near total paralysis of lower face). -: 3=Complete paralysis of upper and lower face 4. Responses: 0 5. Motor functions (left arm): Alternate sides and extend each arm with palms down (90 degrees if sitting or 45 degrees for supine). -: 0=No drift;limb holds for full 10 seconds. -: 1=Drift; limb holds but drifts down before full 10 seconds, but does not hit bed. -: 2=Some effort against gravity; limb cannot get to or maintain position. -: 3=No effort against gravity; limb falls. -: 4=No movement. -: UN=Amputation, joint fusion, explain in comments. 5. Responses (left arm): 0 5. Motor Functions (right arm): Alternate sides and extend each arm with palms down (90 degrees if sitting or 45 degrees for supine). -: 0=No drift;limb holds for full 10 seconds. -: 1=Drift; limb holds but drifts down before full 10 seconds, but does not hit bed. -: 2=Some effort against gravity; limb cannot get to or maintain position. -: 3=No effort against gravity; limb falls. -: 4=No movement. -: UN=Amputation, joint fusion, explain in comments. 5. Responses (right arm): 0 6. Motor Functions (left leg): With patient lying supine, alternate sides and extend each leg (30 degrees always while supine). -: 0=No drift, leg holds position for full 5 seconds -: 1=Drift; leg falls before full 5 seconds but does not hit bed. -: 2=Some effort against gravity, leg falls to bed but some effort against gravity. -: 3=No effort against gravity, leg falls to bed immediately. -: 4=No movement. -: UN=Amputation, joint fusion; explain in comments. 6. Responses (left leg): 0 6. Motor Functions (right leg): With patient lying supine, alternate sides and extend each leg (30 degrees always while supine). -: 0=No drift, leg holds position for full 5 seconds -: 1=Drift; leg falls before full 5 seconds but does not hit bed. -: 2=Some effort against gravity, leg falls to bed but some effort against gravity. -: 3=No effort against gravity, leg falls to bed immediately. -: 4=No movement. -: UN=Amputation, joint fusion; explain in comments. 6. Responses (right leg): 0 7. Limb Ataxia: With eyes open instruct patient to: -: a. "Touch your finger to your nose". -: b. "Touch your heel to your razo" -: 0=Absent -: 1=Present in one limb. -: 2=Present in two limbs. -: UN=Amputation or joint fusion; explain in comments. 7. Responses: 0 8. Sensory: Test sensation using pinprick or noxious stimuli. Test as many body parts as possible. -: 0=Normal;no sensory loss -: 1=Mile to moderate sensory loss (patient feels pin prick but is less sharp on affected side). -: 2=Severe or total sensory loss. 8. Responses: 0 9. Best Language: Instruct patient to: -: a. "Describe what you see in this picture." -: b. "Name the items in this picture." -: c. "Read these sentences." -: 0=No aphasia, normal -: 1=Mild to moderate aphasia. -: 2=Severe aphasia -: 3=Mute, global aphasia, no usable speech or auditory comprehension. 9. Responses: 0 10. Articulation, Dysarthia: Instruct patient to: -: "Read these words" or "Repeat these words" -: 0=Normal -: 1=Mild to moderate; patient may slur some words but can be understood without difficulty. -: 2=Severe; patients speech so slurred as to be unintelligible in the absence of dysphasia. -: UN=Intubated or other physical barrier, explain in comments. 10. Responses: 0 11. Extinction or inattention: 0=No abnormality -: 1= Visual, tactile, auditory, spatial, or personal inattention or extinction to bilateral simulation in one or the sensory modalities. -: 2=Profound archie-inattention or archie-inattention to more than one modality; does not recognize own hand. 11. Responses: 0 Total Score: 0
--- NOTE | 2018-05-15 16:01 | RADIOLOGY REPORT (SQ) ---
EXAM DESCRIPTION: MRI HEAD WITHOUT COMPLETED DATE/TIME: 05/15/2018 3:53 pm REASON FOR STUDY: left sided numbness COMPARISON: None. TECHNIQUE: Multiplanar imaging includes non-contrasted T1, T2, FLAIR, and diffusion with ADC map seq uences. Images stored on PACS. LIMITATIONS: None. FINDINGS: ANATOMY: No anomalies. Normal vascular flow voids. Pituitary fossa normal. CSF SPACES: Normal in size and contour. No hemorrhage. CEREBRUM: Sulci and gyri normal in size and contour. Normal white matter signal on FLAIR imaging. No evidence of hemorrhage, mass, or extraaxial fluid collection. POSTERIOR FOSSA: No signal alteration. No hemorrhage. No edema, masses or mass effect. Internal cheng tory canals, cerebello-pontine angles, mastoids normal. DIFFUSION IMAGING: Negative for acute or sub-acute infarction. ORBITS: No masses. Globes normal. PARANASAL SINUSES: No fluid levels. Mucosa normal. OTHER: No other significant finding. IMPRESSION: NORMAL MRI OF THE BRAIN WITHOUT INTRAVENOUS GADOLINIUM CONTRAST. EVIDENCE OF ACUTE STROKE: NO. TECHNICAL DOCUMENTATION: JOB ID: [id number] [employer]- All Rights Reserved Reading location - IP/workstation name: [email or web address]
--- NOTE | 2018-05-15 17:45 | EKG REPORT ---
SEVERITY:- NORMAL ECG - SINUS RHYTHM : Confirmed by: Jonas Rosales MD 15-May-2018 17:44:42
[2018-05-15 18:35] VITALS: BP 115/77
== END 2018-05-15 18:35 | disposition home or self-care (01) ==
LOC: ER 10:09
DX: R20.0 Anesthesia of skin (principal); R20.2 Paresthesia of skin; R51 Headache; R42 Dizziness and giddiness; R25.3 Fasciculation; R11.0 Nausea; Z72.0 Tobacco use
CPT/HCPCS: 93005; 99284; 96361; 96374; 96375; 36415; 85025; 80053; 81001; 70551; 70450; 93010; J1200; J2765; J7030; J7120

== ENCOUNTER 2018-12-26 20:01 | Emergency (ER) | payer SELFPAY ==
--- NOTE | 2018-12-26 20:40 | ER Document Report ---
ED Medical Screen (RME) - General Chief Complaint: Shoulder Pain Stated Complaint: RIGHT SHOULDER PAIN Time Seen by Provider: 12/26/18 20:33 Primary Care Provider: MONISHA ADAMS MD [Primary Care Provider] - Follow up as needed Mode of Arrival: Ambulatory Information source: Patient Notes: 33-year-old male presented to ED for right shoulder pain. He states it is been hurting for about 3weeks and has not injured it again tonight. He states it did get worse tonight so he came to the emergency room. He states he has trach recall boys and 212 ounce beer tonight. 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 He states he has had rotator cuff injuries in the past. I have greeted and performed a rapid initial assessment of this patient. A comprehensive ED assessment and evaluation of the patient, analysis of test results and completion of medical decision making process will be conducted by an additional ED providers. TRAVEL OUTSIDE OF THE [place] IN LAST 30 DAYS: No - Related Data Allergies/Adverse Reactions: No Known Allergies Allergy (Verified 05/15/18 10:09) Past Medical History Renal/ Medical History: Denies: Hx Peritoneal Dialysis Past Surgical History: Reports: Hx Appendectomy, Hx Genitourinary Surgery - Vasectomy - Immunizations Hx Diphtheria, Pertussis, Tetanus Vaccination: Yes Physical Exam - Vital signs Vitals: Temp Pulse Resp BP Pulse Ox 97.9 F 67 18 135/86 H 100 12/26/18 20:08 12/26/18 20:08 12/26/18 20:08 12/26/18 20:08 12/26/18 20:08 Course - Vital Signs Vital signs: Temp Pulse Resp BP Pulse Ox 97.9 F 67 18 135/86 H 100 12/26/18 20:08 12/26/18 20:08 12/26/18 20:08 12/26/18 20:08 12/26/18 20:08 Doctor's Discharge - Discharge Referrals: MONISHA ADAMS MD [Primary Care Provider] - Follow up as needed
--- NOTE | 2018-12-26 21:33 | RADIOLOGY REPORT (SQ) ---
EXAM DESCRIPTION: XR SHOULDER 2 OR MORE VIEWS COMPLETED DATE/TME: 12/26/2018 00:00 CLINICAL HISTORY: 33 years Male ? Dislocation COMPARISON: None. TECHNIQUE: RIGHT shoulder three view FINDINGS: No acute fractures or dislocations identified. No osseous destructive lesions. Acromioclavicular joint appears maintained. IMPRESSION: No acute fracture or dislocation identified.
[2018-12-26] MEDS ORDERED: KETOROLAC TROMETHAMINE 60 MG/2 ML SDV IM ONE (22:17)
--- NOTE | 2018-12-26 22:23 | ER Document Report ---
HPI - HPI Time Seen by Provider: 12/26/18 20:33 Pain Level: 4 Notes: Patient is a 33-year-old male with no significant past medical history aside from previous rotator cuff injuries who presents complaining of right shoulder pain that has been developing over the past couple months. 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 No other specific injury. He has not noticed any redness or swelling. Denies drug allergies. Patient states that overhead activities usually the worst. Pain does radiate into his right trapezius muscle. Denies any headache, fever, URI, sore throat, chest pain, palpitations, syncope, cough, shortness of breath, wheeze, dyspnea, abdominal pain, nausea/vomiting/diarrhea, urinary retention, dysuria, hematuria, numbness/tingling, muscle paralysis/weakness, or rash. - ROS Systems Reviewed and Negative: Yes All other systems reviewed and negative - REPRODUCTIVE Reproductive: DENIES: : Past Medical History - General Information source: Patient - Social History Smoking Status: Unknown if Ever Smoked Chew tobacco use (# tins/day): Yes Drug Abuse: None Family History: Arthritis, CAD, CVA, DM, Hyperlipidemia, Hypertension, Malignancy Patient has suicidal ideation: No Patient has homicidal ideation: No Renal/ Medical History: Denies: Hx Peritoneal Dialysis Past Surgical History: Reports: Hx Appendectomy, Hx Genitourinary Surgery - Vasectomy - Immunizations Hx Diphtheria, Pertussis, Tetanus Vaccination: Yes Vertical Provider Document - CONSTITUTIONAL Agree With Documented VS: Yes Notes: PHYSICAL EXAMINATION: GENERAL: Well-appearing, well-nourished and in no acute distress. NECK: Normal range of motion, supple without lymphadenopathy. Non-tender. Spurling negative. No rigidity/meningismus. LUNGS: Breath sounds clear to auscultation bilaterally and equal. No wheezes rales or rhonchi. HEART: Regular rate and rhythm without murmurs, rubs, gallops. Musculoskeletal: Rt shoulder: FROM to passive. LROM to active due to pain. Strength 5+/5. + impingement test. Neg speed test. No crepitus. No erythema or warmth. No deformity or ecchymosis. RC intact 5+/5 strength. Extremities: No cyanosis, clubbing, or edema b/l. Peripheral pulses 2+. Capillary refill less than 3 seconds. NEUROLOGICAL: Normal speech, normal gait. Normal sensory, motor exams PSYCH: Normal mood, normal affect. SKIN: Warm, Dry, normal turgor, no rashes or lesions noted. - INFECTION CONTROL TRAVEL OUTSIDE OF THE [place] IN LAST 30 DAYS: No Course - Re-evaluation Re-evalutation: 12/26/18 22:20 Patient is an afebrile, well-hydrated, 33-year-old male who presents to the ED with Rt shoulder pain which I suspect to be impingement/inflammation, possible internal involvement. Vitals are acceptable without any significant tachycardia, tachypnea, or hypoxia. PE is otherwise unremarkable for any neurovascular compromise, obvious tendon/ligament rupture, obvious fracture/dislocation, septic joint. X-ray was unremarkable for any acute pathology. Sling and toradol given today. Patient is nontoxic-appearing. No other labs or imaging warranted at this time based on H&P. Conservative measures otherwise for symptoms. Recheck with your PCM in 3-5 days. Consider consult orthopedics. Return to the ED with any worsening/concerning symptoms otherwise as reviewed in discharge. Patient is in agreement. - Vital Signs Vital signs: Temp Pulse Resp BP Pulse Ox 97.9 F 67 18 135/86 H 100 12/26/18 20:08 12/26/18 20:08 12/26/18 20:08 12/26/18 20:08 12/26/18 20:08 Discharge - Discharge Clinical Impression: Right shoulder pain Qualifiers: Chronicity: acute Qualified Code(s): M25.511 - Pain in right shoulder Condition: Stable Disposition: HOME, SELF-CARE Additional Instructions: Rest, Ice, Compression, Elevation Tylenol/ibuprofen as needed Light stretches daily Strength exercises as able Moist heat and massage may help F/u with your PCP in 3-5 days for a recheck Consider consult(s) with Orthopedics/physical therapy for ongoing/worsening symptoms Return to the ED with any worsening symptoms and/or development of fever, headache, chest pain, palpitations, syncope, shortness of breath, trouble breathing, abdominal pain, n/v/d, muscle weakness/paralysis, numbness/tingling, swelling, redness, or other worsening symptoms that are concerning to you. Prescriptions: Ibuprofen [Motrin 800 mg Tablet] 800 mg PO Q8H PRN #15 tab PRN Reason: Forms: Elevated Blood Pressure Referrals: [facility]) [Provider Group] - Follow up as needed
[2018-12-26 22:57] VITALS: BP 135/84
== END 2018-12-26 22:55 | disposition home or self-care (01) ==
LOC: ER 20:01
DX: M25.511 Pain in right shoulder (principal)
CPT/HCPCS: 99283; 96372; 73030; L3650; J1885

== ENCOUNTER 2019-03-27 22:26 | Emergency (ER) | payer SELFPAY ==
--- NOTE | 2019-03-28 00:40 | ER Document Report ---
ED General - General Chief Complaint: Shoulder Pain Stated Complaint: RIGHT SHOULDER PAIN Time Seen by Provider: 03/28/19 00:21 Primary Care Provider: MOOSE ROBB PA [Primary Care Provider] - Follow up as needed TRAVEL OUTSIDE OF THE [place] IN LAST 30 DAYS: No - Related Data Allergies/Adverse Reactions: acetaminophen [From Percocet] Adverse Reaction (Verified 03/28/19 00:23) oxycodone [From Percocet] Adverse Reaction (Verified 03/28/19 00:23) Past Medical History - Social History Smoking Status: Current Every Day Smoker Family History: Arthritis, CAD, CVA, DM, Hyperlipidemia, Hypertension, Malignancy Patient has suicidal ideation: No Patient has homicidal ideation: No Renal/ Medical History: Denies: Hx Peritoneal Dialysis Past Surgical History: Reports: Hx Appendectomy, Hx Genitourinary Surgery - Vasectomy - Immunizations Hx Diphtheria, Pertussis, Tetanus Vaccination: Yes Physical Exam - Vital signs Vitals: Temp Pulse Resp BP Pulse Ox 97.6 F 76 18 129/84 H 98 03/27/19 22:30 03/27/19 22:30 03/27/19 22:30 03/27/19 22:30 03/27/19 22:30 - Notes Notes: Patient presents emerge department complaint right shoulder pain is been going on for. The past several months has gotten worse recently. 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 He was seen by orthopedics in December told him he had a torn bicep muscle was given a week off from work and then went back to work. He did have pain in the area. He may today though because he noted some bruising over the anterior aspect of the right shoulder. Is any new trauma. Is decreased range of motion the shoulder with occasional numbness in the arm but no weakness. Denies any neck pain chest pain shortness of breath nausea vomiting abdominal pain. Is not noticed bruising anywhere else is been no blood in his urine and no blood in his stools. He was taking 800 mg to 3 times a day but none in several days Past medical history is unremarkable Social history does not smoke but does drink. Times a few beers up to 1-2 sixpacks 1 Review of systems pertinent positives and negatives in HPI otherwise all the systems were reviewed and acutely negative PHYSICIAN EXAM -vital signs are noted triage note and note from triage reviewed GENERAL: Well-appearing, well-nourished and in _no acute distress HEAD: Atraumatic, normocephalic. EYES: Pupils equal round and reactive to light, extraocular movements intact, sclera anicteric, conjunctiva are normal. ENT: nares patent, oropharynx clear without exudates. Moist mucous membranes. NECK: supple without lymphadenopathy nontender in the midline LUNGS: Breath sounds clear to auscultation bilaterally and equal. No wheezes rales or rhonchi. HEART: Regular rate and rhythm without murmurs ABDOMEN: Soft, nontender, normoactive bowel sounds. EXTREMITIES: Right upper extremity at the clavicle and AC joint are nontender is got tenderness over the biceps tendon the elbow and wrist are nontender. He is got an old bruise of the anterior aspect of the biceps yellow-greenish appearance. Decreased range of motion of the shoulder can only abduct to about 30 degrees. Motor strength is 5/5 with flexion extension of the elbow and wrist. Sensations intact light touch function is intact to the axillary nerve NEUROLOGICAL: Oriented x4 good motor strength in the other extremities PSYCH: Normal mood, normal affect. SKIN: Warm, Dry, normal turgor, no rashes or lesions noted. BACK-nontender in the midline Course - Re-evaluation Re-evalutation: 03/28/19 00:40 Medical decision making patient with persistent right shoulder pain concerning for a rotator cuff tear. The bruising is old and may be just be related to his work. He has no bruises elsewhere to assess for coagulopathy to the Motrin. Treatment options with the patient. He says actually cannot take time off work advised him that we will work will continue to aggravate the injury. I saw mmended he decrease his dose of Motrin to 2 tablets 4 times a day rest as much as possible and follow-up with orthopedics next day or 2 as he will need an MRI and outpatient physical therapy Physician 1 at this time there is no indication for admission. I have discussed the findings with patient/family with return precautions and follow-up recommendations. Verbal discharge instructions given at the bedside and opportunity for questions given. Medication warnings were given if indicated. Patient is in agreement with this plan and has verbalized understanding of return precautions and the need for primary care follow-up as directed.. - Vital Signs Vital signs: Temp Pulse Resp BP Pulse Ox 97.6 F 76 18 129/84 H 98 03/27/19 22:30 03/27/19 22:30 03/27/19 22:30 03/27/19 22:30 03/27/19 22:30 Discharge - Discharge Clinical Impression: Rotator cuff injury Qualifiers: Encounter type: sequela Laterality: right Qualified Code(s): S46.001S - Unspecified injury of muscle(s) and tendon(s) of the rotator cuff of right shoulder, sequela Disposition: HOME, SELF-CARE Additional Instructions: Return if you get worse or unable to follow-up with your family doctor Please review the discharge instructions. They will tell you about your illness/injury, the normal course and symptoms you need to return to the emergency department for Follow-up with orthopedics in 2 to 3 days Apply ice to your shoulder at night after working Take 2 Motrin 4 times a day Return if you develop bruising elsewhere on the body blood in your stools or bl ood in your urine Your blood pressure was elevated today needs to be rechecked again in 1 to 2 weeks to determine if need to be on medication or have your medications adjusted. Untreated hypertension can cause heart attack stroke and kidney failure Forms: Elevated Blood Pressure Referrals: MOOSE ROBB PA [Primary Care Provider] - Follow up as needed
[2019-03-28 01:06] VITALS: BP 125/77
== END 2019-03-28 00:50 | disposition home or self-care (01) ==
LOC: ER 22:26
DX: S46.001S Unspecified injury of muscle(s) and tendon(s) of the rotator cuff of right shoulder, sequela (principal); M25.511 Pain in right shoulder; X58.XXXS Exposure to other specified factors, sequela; F17.200 Nicotine dependence, unspecified, uncomplicated; Z88.6 Allergy status to analgesic agent
CPT/HCPCS: 99283

== ENCOUNTER 2020-01-25 20:24 | Emergency (ER) | payer OTHER ==
[2020-01-25] MEDS ORDERED: IBUPROFEN 800 MG TABLET PO ONE (21:23)
--- NOTE | 2020-01-25 21:28 | ER Document Report ---
ED Medical Screen (RME) - General Chief Complaint: Ankle Pain Stated Complaint: LEFT FOOT INJURY Time Seen by Provider: 01/25/20 21:18 Primary Care Provider: MOOSE ROBB PA [Primary Care Provider] - Follow up as needed Mode of Arrival: Wheelchair Information source: Patient Notes: 34-year-old male presented to ED for complaint of pain and injury to the left foot and ankle around 1130 this morning. He states he was helping to move a gun safe while going up the stairs he lost his footing the gun safe and the dank fell on his left ankle and foot. He states he took 800 mg of ibuprofen about 1145. I have ordered him another 800 mg of ibuprofen and x-rays of the foot and ankle. Patient is alert oriented respirations regular nonlabored speaking in full sentences. He will be seen by another provider I have greeted and performed a rapid initial assessment of this patient. A comprehensive ED assessment and evaluation of the patient, analysis of test r esults and completion of medical decision making process will be conducted by an additional ED providers. TRAVEL OUTSIDE OF THE [place] IN LAST 30 DAYS: No - HPI Onset: This morning Onset/Duration: Persistent Quality of pain: Sharp, Throbbing Severity: Moderate Pain Level: 3 Associated Symptoms: Other - Pain swelling to Exacerbated by: Movement, Walking Relieved by: Denies Similar symptoms previously: No Recently seen / treated by doctor: No - Related Data Smoking: Other - Dips half a can a day Frequency of alcohol use: Heavy - 2 to 5-beer a day Drug Abuse: None Allergies/Adverse Reactions: acetaminophen [From Percocet] Adverse Reaction (Verified 01/25/20 21:20) oxycodone [From Percocet] Adverse Reaction (Verified 01/25/20 21:20) Past Medical History Renal/ Medical History: Denies: Hx Peritoneal Dialysis Past Surgical History: Reports: Hx Appendectomy, Hx Genitourinary Surgery - Vasectomy - Immunizations Hx Diphtheria, Pertussis, Tetanus Vaccination: Yes Physical Exam - Vital signs Vitals: Temp Pulse Resp BP Pulse Ox 98.3 F 63 18 130/81 H 100 01/25/20 21:01 01/25/20 21:01 01/25/20 21:01 01/25/20 21:01 01/25/20 21:01 Course - Vital Signs Vital signs: Temp Pulse Resp BP Pulse Ox 98.3 F 63 18 130/81 H 100 01/25/20 21:01 01/25/20 21:01 01/25/20 21:01 01/25/20 21:01 01/25/20 21:01 Doctor's Discharge - Discharge Referrals: MOOSE ROBB PA [Primary Care Provider] - Follow up as needed
--- NOTE | 2020-01-25 21:56 | RADIOLOGY REPORT (SQ) ---
CLINICAL INDICATION: Pain and injury. . TECHNIQUE: 3 view(s) were obtained of the left ankle. COMPARISON: None. FINDINGS: No acute displaced fracture is identified of the ankle. Alignment appears anatomic. Joint spaces are within normal limits for age. Surrounding soft tissues are unremarkable. IMPRESSION: No evidence of acute displaced fracture of the ankle. Foot dictated separately
--- NOTE | 2020-01-25 21:57 | RADIOLOGY REPORT (SQ) ---
CLINICAL INDICATION: Pain and injury. . TECHNIQUE: 3 view(s) were obtained of the left foot. COMPARISON: None. FINDINGS: No acute displaced fracture is identified of the foot. Alignment appears anatomic. Joint spaces are within normal limits for age. Surrounding soft tissues are unremarkable. IMPRESSION: No evidence of acute displaced fracture of the foot.
--- NOTE | 2020-01-26 02:50 | ER Document Report ---
ED Extremity Problem, Lower - General Chief Complaint: Ankle Injury Stated Complaint: LEFT FOOT INJURY Time Seen by Provider: 01/25/20 21:18 Primary Care Provider: SIM BANG MD [ASSOCIATE] - Follow up as needed MOOSE ROBB PA [Primary Care Provider] - Follow up as needed Mode of Arrival: Wheelchair TRAVEL OUTSIDE OF THE [place] IN LAST 30 DAYS: No - HPI Notes: Patient is a 34 y/o male who presents for injury and pain to his left foot and ankle. Patient states that around 11:30AM this morning he was helping move a gun safe up some stairs. He lost his foot and the gun safe and dank feel on his left foot and ankle. He took 800mg of ibuprofen about 15 minutes after the incident. Patient is able to ambulate but is limited by pain. He denies any other symptoms. - Related Data Allergies/Adverse Reactions: acetaminophen [From Percocet] Adverse Reaction (Verified 01/25/20 21:20) oxycodone [From Percocet] Adverse Reaction (Verified 01/25/20 21:20) Home Medications: denies Past Medical History - General Information source: Patient - Social History Smoking Status: Never Smoker Chew tobacco use (# tins/day): Yes - 0.5tin Frequency of alcohol use: Heavy - 2 to 5-beer a day Drug Abuse: None Family History: Arthritis, CAD, CVA, DM, Hyperlipidemia, Hypertension, M alignancy Patient has homicidal ideation: No Renal/ Medical History: Denies: Hx Peritoneal Dialysis Past Surgical History: Reports: Hx Appendectomy, Hx Genitourinary Surgery - Vasectomy - Immunizations Hx Diphtheria, Pertussis, Tetanus Vaccination: Yes Review of Systems - Review of Systems Constitutional: No symptoms reported EENT: No symptoms reported Cardiovascular: No symptoms reported Respiratory: No symptoms reported Gastrointestinal: No symptoms reported Genitourinary: No symptoms reported Male Genitourinary: No symptoms reported Musculoskeletal: See HPI Skin: No symptoms reported Hematologic/Lymphatic: No symptoms reported Neurological/Psychological: No symptoms reported Physical Exam - Vital signs Vitals: Temp Pulse Resp BP Pulse Ox 98.3 F 63 18 130/81 H 100 01/25/20 21:01 01/25/20 21:01 01/25/20 21:01 01/25/20 21:01 01/25/20 21:01 - Notes Notes: PHYSICAL EXAMINATION: GENERAL: Well-appearing, well-nourished and in no acute distress. HEAD: Atraumatic, normocephalic. EYES: sclera anicteric, conjunctiva are normal. ENT: Moist mucous membranes. NECK: Normal range of motion LUNGS: Normal work of breathing EXTREMITIES: Abrasions to the left lateral ankle and medial, dorsal foot. Minimal swelling to the left ankle and foot. Palpable DP and PT pulses with good cap refill. Limited ROM of the left ankle secondary to pain. Sensation intact. No cyanosis. NEUROLOGICAL: No focal neurological deficits. Moves all extremities spontaneously and on command. PSYCH: Normal mood, normal affect. SKIN: Warm, Dry, normal turgor, no rashes or lesions noted. Course - Re-evaluation Re-evalutation: Patient is a 34 y/o male and presents for an injury and pain to his left ankle and foot that occurred earlier yesterday morning. Vital signs are within normal limits. On exam, abrasions to the left lateral ankle and medial foot. Minimal swelling. Left foot and ankle are neurovascularly intact. Foot and ankle x- rays are negative with no signs of fracture. Patient will be discharged home in a ankle stirrup splint. Patient has crutches at home that he can use. Instructed to take Tylenol as needed for pain. Discussed the importance of fo llowing up with orthopedics if his symptoms do not improve in 1 week. Return precautions and follow-up instructions given. Patient understands and is in agreement with the plan. - Vital Signs Vital signs: Temp Pulse Resp BP Pulse Ox 98.4 F 76 18 138/91 H 100 01/26/20 02:55 01/26/20 02:55 01/26/20 02:29 01/26/20 02:55 01/26/20 02:55 Procedures - Immobilization Left Ankle Pre-Proc Neuro Vasc Exam: Normal Immobilizer type: Ankle stirrup Post-Proc Neuro Vasc Exam: Normal Discharge - Discharge Clinical Impression: Left foot pain Left ankle pain Qualifiers: Chronicity: acute Qualified Code(s): M25.572 - Pain in left ankle and joints of left foot Injury of left foot Qualifiers: Encounter type: initial encounter Qualified Code(s): S99.922A - Unspecified injury of left foot, initial encounter Condition: Stable Disposition: HOME, SELF-CARE Instructions: Josesito Wrap ([facility]), Ankle Stirrup Splint ([facility]), Use of Crutches ([facility]), Ice & Elevation ([facility]) Additional Instructions: Take ibuprofen as needed for pain. Follow up with ortho if your pain does not improve in one week. Return if foot or ankle become red, swollen, warm with increasing pain. Forms: Return to Work Referrals: MOOSE ROBB PA [Primary Care Provider] - Follow up as needed SIM BANG MD [ASSOCIATE] - Follow up as needed
[2020-01-26 02:56] VITALS: BP 138/91
== END 2020-01-26 03:01 | disposition home or self-care (01) ==
LOC: ER 20:24
DX: S90.812A Abrasion, left foot, initial encounter (principal); S90.512A Abrasion, left ankle, initial encounter; W20.8XXA Other cause of strike by thrown, projected or falling object, initial encounter; Y93.89 Activity, other specified; Y92.009 Unspecified place in unspecified non-institutional (private) residence as the place of occurrence of the external cause; Z72.0 Tobacco use
CPT/HCPCS: 99284